=== PATIENT | female | born 1965 | race Caucasian/White ===

== ENCOUNTER 2024-05-23 08:03 | Day surgery (SDC) | payer MEDICAID, OTHER ==
[~2024-05-23] VITALS: Ht 160 cm; Wt 59.0 kg
[2024-05-23 09:25] VITALS: O2SAT 100
[2024-05-23] MEDS ORDERED: fentaNYL CITRATE/PF 100 MCG/2 ML AMP ONE ×2 (10:59→11:18)
[2024-05-23] MEDS ORDERED: MIDAZOLAM HCL 5 MG/5 ML VIAL ONE ×2 (10:59→11:14)
[2024-05-23 16:02] VITALS: BP_SYST 135; PULSE 96; RESP 20
== END 2024-05-23 12:30 | disposition home or self-care (01) ==
LOC: SMU 08:03 → SDS 08:03
PROVIDERS: ATTEND Internal Medicine
DX: R19.5 Other fecal abnormalities (principal); R10.9 Unspecified abdominal pain; K29.50 Unspecified chronic gastritis without bleeding; K64.8 Other hemorrhoids; E78.5 Hyperlipidemia, unspecified; M19.90 Unspecified osteoarthritis, unspecified site; Z87.891 Personal history of nicotine dependence
CPT/HCPCS: 45378; 43239; 99152; 87081; 36415; 88305; 88312; 88313; 99153; G0378; J2250; J3010